=== PATIENT | male | born 1970 | race Two or more races ===

== ENCOUNTER 2018-10-18 17:44 | Emergency (ER) | payer SELFPAY ==
--- NOTE | 2018-10-18 19:12 | ER Document Report ---
ED Medical Screen (RME) - General Chief Complaint: Urinary Problem Stated Complaint: URINARY PROBLEMS Time Seen by Provider: 10/18/18 19:11 Mode of Arrival: Ambulatory Information source: Patient Notes: Patient presents with asymptomatic hypertension and hematuria. Patient states he had blood in the urine for the past 2 days. Patient states he went to the urgent care for evaluation and they advised him to come here due to the blood in the urine and his high blood pressure. Patient denies any significant medical history. Patient denies any abdominal pain, back pain, nausea or vomiting. Patient denies any headache. I have greeted and performed a rapid initial assessment of this patient. A comprehensive ED assessment and evaluation of the patient, analysis of test results and completion of the medical decision making process will be conducted by additional ED providers. TRAVEL OUTSIDE OF THE [place] IN LAST 30 DAYS: No - Related Data Allergies/Adverse Reactions: No Known Allergies Allergy (Unverified 10/18/18 17:49) Physical Exam - Vital signs Vitals: Temp Pulse Resp BP Pulse Ox 98.9 F 104 H 12 177/107 H 96 10/18/18 18:10 10/18/18 18:10 10/18/18 18:10 10/18/18 18:10 10/18/18 18:10 - General General appearance: Appears well, Alert In distress: None Course - Vital Signs Vital signs: Temp Pulse Resp BP Pulse Ox 98.9 F 104 H 12 177/107 H 96 10/18/18 18:10 10/18/18 18:10 10/18/18 18:10 10/18/18 18:10 10/18/18 18:10
[2018-10-18 19:43] LABS: ABSOLUTE BASOPHILS # (AUTO) 0.1 10^3/uL (0.0-0.2); ABSOLUTE EOSINOPHILS # (AUTO) 0.1 10^3/uL (0.0-0.6); ABSOLUTE LYMPHOCYTES (AUTO) 2.9 10^3/uL (0.5-4.7); ABSOLUTE MONOCYTES (AUTO) 0.7 10^3/uL (0.1-1.4); ABSOLUTE NEUT (AUTO) 5.8 10^3/uL (1.7-8.2); BASOPHILS % (AUTO) 0.8 % (0-2); EOSINOPHILS % (AUTO) 1.1 % (0-6); HEMATOCRIT 44.4 % (37.9-51.0); HEMOGLOBIN 15.4 g/dL (13.5-17.0); MEAN CORPUSCULAR HEMOGLOBIN 32.1 pg (27.0-33.4); MEAN CORPUSCULAR HGB CONC 34.6 g/dL (32.0-36.0); MEAN CORPUSCULAR VOLUME 93 fl (80-97); MONOCYTES % (AUTO) 7.8 % (3-13); PLATELET COUNT 278 10^3/uL (150-450); RED BLOOD COUNT 4.79 10^6/uL (4.35-5.55); RED CELL DISTRIBUTION WIDTH 13.3 % (11.5-14.0); SEGMENTED NEUTROPHILS % (AUTO) 60.3 % (42-78); TOTAL CELLS COUNTED % (AUTO) 100 %; WHITE BLOOD COUNT 9.6 10^3/uL (4.0-10.5)
[2018-10-18 19:48] LABS: APPEARANCE,URINE SLIGHTLY-CLOUDY; BILIRUBIN,URINE NEGATIVE (NEGATIVE); COLOR,URINE YELLOW; GLUCOSE, URINE NEGATIVE (NEGATIVE); KETONES,URINE NEGATIVE (NEGATIVE); LEUKOCYTE ESTERASE,URINE NEGATIVE (NEGATIVE); NITRITE,URINE NEGATIVE (NEGATIVE); PROTEIN,URINE NEGATIVE (NEGATIVE); URINE SPECIFIC GRAVITY 1.025
[2018-10-18 19:59] LABS: ALANINE AMINOTRANSFERASE 43 U/L (21-72); ALBUMIN 4.4 g/dL (3.5-5.0); ALKALINE PHOSPHATASE 79 U/L (38-126); ANION GAP 9 (5-19); ASPARTATE AMINO TRANSFERASE 30 U/L (17-59); BILIRUBIN,DIRECT 0.2 mg/dL (0.0-0.4); BILIRUBIN,TOTAL 0.3 mg/dL (0.2-1.3); BLOOD UREA NITROGEN 14 mg/dL (7-20); CALCIUM 9.6 mg/dL (8.4-10.2); CARBON DIOXIDE 27 mmol/L (22-30); CHLORIDE 105 mmol/L (98-107); GLUCOSE 117 mg/dL (75-110); POTASSIUM 4.3 mmol/L (3.6-5.0); TOTAL PROTEIN 7.4 g/dL (6.3-8.2)
[2018-10-18 21:12] LABS: CHLAM PCR NOT DETECTED (NOT DETECT)
--- NOTE | 2018-10-18 22:33 | ER Document Report ---
ED General - General Chief Complaint: Urinary Problem Stated Complaint: URINARY PROBLEMS Time Seen by Provider: 10/18/18 19:11 Mode of Arrival: Ambulatory Notes: Patient is a 48 year old male that comes to the Emergency Department for chief complaint of dar hematuria for the past 2 days. He was seen in urgent care a nd they advised him to come to the emergency department because of blood in his urine and noted high blood pressure. Patient denies any diagnosed or medicated past medical history. He also denies abdominal pain, flank pain, fever/chills, weight loss. He does smoke. He states yesterday he vomited randomly after eating spicy food. He denies headache or chest pain. TRAVEL OUTSIDE OF THE [place] IN LAST 30 DAYS: No - Related Data Allergies/Adverse Reactions: No Known Allergies Allergy (Unverified 10/18/18 17:49) Past Medical History - General Information source: Patient - Social History Smoking Status: Current Every Day Smoker Smoking Education Provided: Yes - <3 min Frequency of alcohol use: Heavy Drug Abuse: None Lives with: Family Family History: Reviewed & Not Pertinent Patient has suicidal ideation: No Patient has homicidal ideation: No Renal/ Medical History: Denies: Hx Peritoneal Dialysis Past Surgical History: Reports: Hx Orthopedic Surgery - Immunizations Immunizations up to date: Yes Hx Diphtheria, Pertussis, Tetanus Vaccination: Yes Review of Systems - Review of Systems Constitutional: No symptoms reported EENT: No symptoms reported Cardiovascular: No symptoms reported Respiratory: No symptoms reported Gastrointestinal: See HPI Genitourinary: See HPI Male Genitourinary: No symptoms reported Musculoskeletal: No symptoms reported Skin: No symptoms reported Hematologic/Lymphatic: No symptoms reported Neurological/Psychological: No symptoms reported Physical Exam - Vital signs Vitals: Temp Pulse Resp BP Pulse Ox 98.9 F 104 H 12 177/107 H 96 10/18/18 18:10 10/18/18 18:10 10/18/18 18:10 10/18/18 18:10 10/18/18 18:10 - Notes Notes: GENERAL: Alert, interacts well. No acute distress. HEAD: Normocephalic, atraumatic. EYES: Pupils equal, round, and reactive to light. Extraocular movements intact. ENT: Oral mucosa moist, tongue midline. Oropharynx unremarkable. Airway patent. LUNGS: Clear to auscultation bilaterally, no wheezes, rales, or rhonchi. No respiratory distress. HEART: Regular rate and rhythm. No murmur ABDOMEN: Soft, non-tender. Non-distended. Bowel sounds present in all 4 quadrants. GENITOURINARY: Deferred EXTREMITIES: Moves all 4 extremities spontaneously. No edema, normal radial and dorsalis pedis pulses bilaterally. No cyanosis. BACK: no cervical, thoracic, lumbar midline tenderness. No saddle anesthesia, normal distal neurovascular exam. Moves all extremities in full range of motion. NEUROLOGICAL: Alert and oriented x3. Normal speech. Cranial nerves II through XII grossly intact. PSYCH: Normal affect, normal mood. SKIN: Warm, dry, normal turgor. No rashes or lesions noted. Course - Re-evaluation Re-evalutation: Patient is a symptomatic on my exam. Abdomen and flank are nontender and benign. Vital signs unremarkable except for hypertension. CBC, chemistry unremarkable. Urine shows hematuria. Gonorrhea and chlamydia tested in triage are negative. Discussed with patient, we will perform a CAT scan to try to evaluate the source of the hematuria. CAT scan shows right-sided kidney stone but no passing ureterolithiasis. No other concerning findings. Patient states he had an episode yesterday where he was vomiting, it is possible he passed a stone and has secondary hematuria. I recommended that he see primary care for recheck of his hypertension and recheck of his urine. I did discuss the possibility of cystoscopy he has patient is a smoker and he does have a lot of urine. Discussed the importance of follow-up because of blood pressure management and potential cancer rule out if the stone is not the cause of his hematuria. Patient states understanding and agreement with plan. Provided with a copy of his results. - Vital Signs Vital signs: Temp Pulse Resp BP Pulse Ox 98.1 F 86 18 151/98 H 97 10/18/18 23:40 10/18/18 23:40 10/18/18 23:40 10/18/18 23:40 10/18/18 23:40 - Laboratory Result Diagrams: 10/18/18 19:24 10/18/18 19:24 Laboratory results interpreted by me: 10/18/18 10/18/18 19:24 19:26 Glucose 117 H Urine Blood LARGE H Urine Urobilinogen 2.0 H Discharge - Discharge Clinical Impression: Elevated blood pressure reading, Kidney stone on right side Hematuria Qualifiers: Hematuria type: gross Qualified Code(s): R31.0 - Gross hematuria Condition: Stable Disposition: HOME, SELF-CARE Additional Instructions: You do have blood in your urine, you do also have a right-sided kidney stone. Based on your recent symptoms I suspect he did pass a kidney stone and this is most likely the cause of your blood in the urine. However I do recommend a close primary care follow-up, recheck of your urine, and recheck of your blood pressure for additional management. Take your labs/reports with you. Return if you worsen including vomiting, abdominal or back pain, fever, passing out, or any other concerning or worsening symptoms.
--- NOTE | 2018-10-18 22:56 | RADIOLOGY REPORT (SQ) ---
EXAM DESCRIPTION: CT ABDOMEN PELVIS WITHOUT IV CONTRAST COMPLETED DATE/TME: 10/18/2018 22:28 CLINICAL HISTORY: 48 years Male hematuria COMPARISON: None. TECHNIQUE: Contiguous axial images obtained through the abdomen and pelvis without IV contrast. Reformatted images obtained. This exam was performed according to our department optimization program which includes automated exposure control, adjustment of the mA and/or kv according to patient size and/or use of iterative reconstruction technique. FINDINGS: The lung bases are clear. The liver appears unremarkable. The spleen and pancreas appear unremarkable. No adrenal masses. Nonobstructing renal calculus on the right. No hydronephrosis or obstructive uropathy. The gallbladder is visualized. No aneurysmal dilatation of the aorta. No bowel obstruction. Under markable appendix. Diverticulosis without evidence of diverticulitis. No free pelvic fluid. Mildly enlarged prostate. No acute abnormality noted in the urinary bladder. The bladder appears incompletely distended. IMPRESSION: Nonobstructing right renal calculus Diverticulosis without evidence of diverticulitis Incompletely distended urinary bladder
[2018-10-18 23:41] VITALS: BP 151/98
== END 2018-10-18 23:36 | disposition home or self-care (01) ==
LOC: ER 17:44
DX: N20.0 Calculus of kidney (principal); R31.0 Gross hematuria; R03.0 Elevated blood-pressure reading, without diagnosis of hypertension; F17.200 Nicotine dependence, unspecified, uncomplicated
CPT/HCPCS: 36415; 74176; 80053; 81001; 85025; 87491; 87591; 99284